=== PATIENT | male | born 1965 | race Caucasian/White ===

== ENCOUNTER 2018-03-23 16:05 | Emergency (ER) | payer OTHER, SELFPAY ==
[2018-03-23 16:06] VITALS: BP 119/80; PULSE 106; RESP 18; TEMP 36.8; O2SAT 97; BMI 23.5
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
[2018-03-23] MEDS: Lidocaine/Epi/Tetracaine 50 ML 1 APPLIC TOPICAL (16:27)
[2018-03-23] MEDS: Diphth,Pertuss(Acell),Tet Vac 0.5 ML Vial IM (16:36)
--- NOTE | 2018-03-23 16:41 | ED.RN ---
MED LIST NOT COMPLETED, PT LIVES OUT OF STATE, UNABLE TO CONTACT PCP OR PHARMACY, DOES NOT KNOW DOSES OF MEDS, TAKES GABAPENTIN, SYNTHROID, STOMACH PILL.
== END 2018-03-23 17:04 | disposition home or self-care (01) ==
PROVIDERS: Emergency Provider Emergency Medicine
DX: S01.81XA Laceration without foreign body of other part of head, initial encounter (principal); W45.8XXA Other foreign body or object entering through skin, initial encounter; Y93.19 Activity, other involving water and watercraft; Y92.828 Other wilderness area as the place of occurrence of the external cause; Y99.8 Other external cause status; K21.9 Gastro-esophageal reflux disease without esophagitis; H60.92 Unspecified otitis externa, left ear; Z23 Encounter for immunization
CPT/HCPCS: 12013; 90471; 90715; 99283